=== PATIENT | female | born 1985 | race Caucasian/White ===

== ENCOUNTER 2016-08-11 19:49 | Emergency (ER) | payer OTHER ==
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
--- NOTE | 2016-08-11 23:40 | ED ORDER SUMMARY ---
..... Patient: YVON LOPEZ OrderSheet [facility] VisitID: [id number] [place] [address] 31y, F Registration Date/Time: 08/11/2016 ORDER SHEET Weight: 66.2 kg (stated) Allergies: No Known Drug Allergy GENERAL ORDERS: MEDICATION ORDERS: Ativan IM 2 mg (HIGH ALERT MEDICATION, NOW) (23:04 08/11/2016 Christina R.N. verbal order read back to HBivens A.R.N.P.) (23:04 HOShaughalessia R.N.) IV FLUIDS: Ativan IV 2 mg (HIGH ALERT MEDICATION, NOW) (22:55 08/11/2016 HBivens A.R.N.P.) (Cancelled: Physician Order23:04 HOSmakayla R.N.) ORDER SHEET NOTES: [Electronically signed by Namrata Arredondo A.R.N.P. (00:17 08/12/2016)] [Electronically signed by Anatoly Mcintyre R.N. (14:30 08/13/2016)] [Electronically locked/signed by Anatoly Mcintyre R.N. (14:30 08/13/2016)]
--- NOTE | 2016-08-11 23:40 | ED ORDER SUMMARY ---
..... Patient: YVON LOPEZ OrderSheet [facility] VisitID: [id number] [place] [address] 31y, F Registration Date/Time: 08/11/2016 ORDER SHEET Weight: 66.2 kg (stated) Allergies: No Known Drug Allergy GENERAL ORDERS: MEDICATION ORDERS: Ativan IM 2 mg (HIGH ALERT MEDICATION, NOW) (23:04 08/11/2016 Christina R.N. verbal order read back to HBivens A.R.N.P.) (23:04 HOShaughalessia R.N.) IV FLUIDS: Ativan IV 2 mg (HIGH ALERT MEDICATION, NOW) (22:55 08/11/2016 HBivens A.R.N.P.) (Cancelled: Physician Order23:04 HOSmakayla R.N.) ORDER SHEET NOTES: [Electronically signed by Namrata Arredondo A.R.N.P. (00:17 08/12/2016)] [Electronically signed by Anatoly Mcintyre R.N. (14:30 08/13/2016)] [Electronically locked/signed by Anatoly Mcintyre R.N. (14:30 08/13/2016)]
--- NOTE | 2016-08-13 14:30 | ED MAR SUMMARY ---
..... Medication Administration Record [facility] [address] [place] [address] Patient: YVON LOPEZ Visit ID: [id number] 31y, F Weight: 66.2 kg Height/Length: 65 in BMI: 24.3 ALLERGIES: No Known Drug Allergy Given 23:04 08/11/2016 Anatoly Mcintyre RRosanneNRosanne Medication Administered: ATIVAN [IM] (LORAZEPAM), Dose: 2 mg IM. Medication Ordered: Ativan IM 2 mg (HIGH ALERT MEDICATION, NOW).
--- NOTE | 2016-08-13 14:30 | ED MAR SUMMARY ---
..... Medication Administration Record [facility] [address] [place] [address] Patient: YVON LOPEZ Visit ID: [id number] 31y, F Weight: 66.2 kg Height/Length: 65 in BMI: 24.3 ALLERGIES: No Known Drug Allergy Given 23:04 08/11/2016 Anatoly Mcintyre RRosanneNRosanne Medication Administered: ATIVAN [IM] (LORAZEPAM), Dose: 2 mg IM. Medication Ordered: Ativan IM 2 mg (HIGH ALERT MEDICATION, NOW).
--- NOTE | 2016-08-13 14:30 | ED DISCHARGE INSTRUCTIONS ---
Patient: YVON LOPEZ General Instructions [facility] VisitID: [id number] [place] [address] 31y, F Registration Date/Time: 08/11/2016 Anxiety reaction. Intermittent explosive disorder. INSTRUCTIONS Warnings: GENERAL WARNINGS: Return or contact your physician immediately if your condition worsens or changes unexpectedly, if not improving as expected, or if other problems arise. Specifically return if problem worsens. Prescription Medications: Xanax 0.25 mg: Take 1 orally every 8 hours as needed for anxiety. Dispense fifteen (15). No refills. Substitution is permissible. Follow-up: Follow up with your doctor in about one week even if well. Call for an appointment. Summary of care provided to patient. Understanding of the discharge instructions verbalized by patient. ADDITIONAL INFORMATION Stress Reaction Anxiety is the feeling we all get when we think something bad might happen. It is a normal response to stress and usually causes only a mild reaction. When anxiety becomes more severe, emotions may interfere with daily life. In some cases, you may not even be aware of what it is youre anxious about! During an anxiety reaction, you may feel like you are helpless, nervous, depressed or irritable. Your body may show signs of anxiety in many ways. You may experience dry mouth, shakiness, dizziness, weakness, trouble breathing, chest pressure, headache, nausea, diarrhea, tiredness, inability to sleep or sexual problems. Home Care: 1) Try to locate the sources of stress in your life. They may not be obvious! These may include: -- Daily hassles of life which pile up (traffic jams, missed appointments, car troubles, etc.) -- Major life changes, both good (new baby, job promotion) and bad (loss of job, loss of loved one) -- Overload: feeling that you have too many responsibilities and can't take care of all of them at once -- Feeling helpless, feeling that your problems are beyond what youre able to solve 2) Notice how your body reacts to stress. Learn to listen to your body signals. This will help you take action before the stress becomes severe. 3) When you can, do something about the source of your stress. (Avoid hassles, limit the amount of change that happens in your life at one time and take a break when you feel overloaded). 4) Unfortunately, many stressful situations cannot be avoided. It is necessary to learn HOW TO MANAGE STRESS better. There are many proven methods that will reduce your anxiety. These include simple things like exercise, good nutrition and adequate rest. Also, there are certain techniques that are helpful: relaxation and breathing exercises, visualization, biofeedback and meditation. For more information about this, consult your doctor or go to a local bookstore and review the many books and tapes available on this subject. Follow Up If you feel that your anxiety is not responding to self-help measures, contact your doctor or make an appointment with a counselor. Get Prompt Medical Attention if any of the following occur: -- Your symptoms get worse -- Chest pain or trouble breathing -- Severe headache not relieved by rest and mild pain reliever -- Rapid or irregular heartbeat, fainting Alprazolam Oral tablet What is this medicine? ALPRAZOLAM (al PRAY anthony dowling) is a benzodiazepine. It is used to treat anxiety and panic attacks. How should I use this medicine? Take this medicine by mouth with a glass of water. Follow the directions on the prescription label. Take your medicine at regular intervals. Do not take it more often than directed. If you have been taking this medicine regularly for some time, do not suddenly stop taking it. You must gradually reduce the dose or you may get severe side effects. Ask your doctor or health home care chaplain for advice. Even after you stop taking this medicine it can still affect your body for several days. Talk to your harnessmaker regarding the use of this medicine in children. Special care may be needed. What side effects may I notice from receiving this medicine? Side effects that you should report to your doctor or health home care chaplain as soon as possible: allergic reactions like skin rash, itching or hives, swelling of the face, lips, or tongue confusion, forgetfulness depression difficulty sleeping difficulty speaking feeling faint or lightheaded, falls mood changes, excitability or aggressive behavior muscle cramps trouble passing urine or change in the amount of urine unusually weak or tired Side effects that usually do not require medical attention (report to your doctor or health home care chaplain if they continue or are bothersome): change in sex drive or performance changes in appetite What may interact with this medicine? Do not take this medicine with any of the following medications: certain medicines for HIV infection or AIDS ketoconazole itraconazole This medicine may also interact with the following medications: control pills certain macrolide antibiotics like clarithromycin, erythromycin, troleandomycin cimetidine cyclosporine ergotamine grapefruit juice herbal or dietary supplements like kava kava, melatonin, dehydroepiandrosterone, DHEA, Hiram's Wort or valerian imatinib, [id number] isoniazid levodopa medicines for depression, anxiety, or psychotic disturbances prescription pain medicines rifampin, rifapentine, or rifabutin some medicines for blood pressure or heart problems some medicines for seizures like carbamazepine, oxcarbazepine, phenobarbital, phenytoin, primidone What if I miss a dose? If you miss a dose, take it as soon as you can. If it is almost time for your next dose, take only that dose. Do not take double or extra doses. Where should I keep my medicine? Keep out of the reach of children. This medicine can be abused. Keep your medicine in a safe place to protect it from theft. Do not share this medicine with anyone. Selling or giving away this medicine is dangerous and against the law. Store at room temperature between 20 and 25 degrees C (68 and 77 degrees F). Throw away any unused medicine after the expiration date. What should I tell my health care provider before I take this medicine? They need to know if you have any of these conditions: an alcohol or drug abuse problem bipolar disorder, depression, psychosis or other mental health conditions glaucoma kidney or liver disease lung or breathing disease myasthenia gravis Parkinson's disease porphyria seizures or a history of seizures suicidal thoughts an unusual or allergic reaction to alprazolam, other benzodiazepines, foods, dyes, or preservatives or trying to get breast-feeding What should I watch for while using this medicine? Visit your doctor or health home care chaplain for regular checks on your progress. Your body can become dependent on this medicine. Ask your doctor or health home care chaplain if you still need to take it. You may get drowsy or dizzy. Do not drive, use machinery, or do anything that needs mental alertness until you know how this medicine affects you. To reduce the risk of dizzy and fainting spells, do not stand or sit up quickly, especially if you are an older patient. Alcohol may increase dizziness and drowsiness. Avoid alcoholic drinks. Do not treat yourself for coughs, colds or allergies without asking your doctor or health home care chaplain for advice. Some ingredients can increase possible side effects. You have been given the following additional information: Anxiety Reaction Alprazolam Oral tablet (Electronically signed by Namrata Arredondo A.R.N.P. 08/12/2016 0:17)
--- NOTE | 2016-08-13 14:30 | ED MED RECONCILIATION SUMMARY ---
Patient: YVON LOPEZ Medication Reconciliation Report [facility] VisitID: [id number] [address] [place] [address] 31y, F Registration Date/Time: 08/11/2016 Weight: 66.2 kg Height/Length: 65 in. BMI: 24.3 ALLERGIES: No Known Drug Allergy The patient's Home Medications are listed below: THE FOLLOWING MEDICATIONS NEED TO BE RECONCILED: SEROquel Oral Valtrex Oral The source(s) of the original Home Medication information: Not obtained. The following Medications were given to the patient in the Emergency Department: Ativan [IM] IM 2 mg, administered: 08/11/2016 11:04:00 PM The following Medications were prescribed to the patient: Xanax 0.25 mg: Take 1 orally every 8 hours as needed for anxiety. Dispense fifteen (15). No refills. Substitution is permissible. -- Namrata Arredondo A.R.N.P.
--- NOTE | 2016-08-13 14:30 | ED MED RECONCILIATION SUMMARY ---
Patient: YVON LOPEZ Medication Reconciliation Report [facility] VisitID: [id number] [address] [place] [address] 31y, F Registration Date/Time: 08/11/2016 Weight: 66.2 kg Height/Length: 65 in. BMI: 24.3 ALLERGIES: No Known Drug Allergy The patient's Home Medications are listed below: THE FOLLOWING MEDICATIONS NEED TO BE RECONCILED: SEROquel Oral Valtrex Oral The source(s) of the original Home Medication information: Not obtained. The following Medications were given to the patient in the Emergency Department: Ativan [IM] IM 2 mg, administered: 08/11/2016 11:04:00 PM The following Medications were prescribed to the patient: Xanax 0.25 mg: Take 1 orally every 8 hours as needed for anxiety. Dispense fifteen (15). No refills. Substitution is permissible. -- Namrata Arredondo A.R.N.P.
--- NOTE | 2016-08-13 14:30 | ED DISCHARGE INSTRUCTIONS ---
Patient: YVON LOPEZ General Instructions [facility] VisitID: [id number] [place] [address] 31y, F Registration Date/Time: 08/11/2016 Anxiety reaction. Intermittent explosive disorder. INSTRUCTIONS Warnings: GENERAL WARNINGS: Return or contact your physician immediately if your condition worsens or changes unexpectedly, if not improving as expected, or if other problems arise. Specifically return if problem worsens. Prescription Medications: Xanax 0.25 mg: Take 1 orally every 8 hours as needed for anxiety. Dispense fifteen (15). No refills. Substitution is permissible. Follow-up: Follow up with your doctor in about one week even if well. Call for an appointment. Summary of care provided to patient. Understanding of the discharge instructions verbalized by patient. ADDITIONAL INFORMATION Stress Reaction Anxiety is the feeling we all get when we think something bad might happen. It is a normal response to stress and usually causes only a mild reaction. When anxiety becomes more severe, emotions may interfere with daily life. In some cases, you may not even be aware of what it is youre anxious about! During an anxiety reaction, you may feel like you are helpless, nervous, depressed or irritable. Your body may show signs of anxiety in many ways. You may experience dry mouth, shakiness, dizziness, weakness, trouble breathing, chest pressure, headache, nausea, diarrhea, tiredness, inability to sleep or sexual problems. Home Care: 1) Try to locate the sources of stress in your life. They may not be obvious! These may include: -- Daily hassles of life which pile up (traffic jams, missed appointments, car troubles, etc.) -- Major life changes, both good (new baby, job promotion) and bad (loss of job, loss of loved one) -- Overload: feeling that you have too many responsibilities and can't take care of all of them at once -- Feeling helpless, feeling that your problems are beyond what youre able to solve 2) Notice how your body reacts to stress. Learn to listen to your body signals. This will help you take action before the stress becomes severe. 3) When you can, do something about the source of your stress. (Avoid hassles, limit the amount of change that happens in your life at one time and take a break when you feel overloaded). 4) Unfortunately, many stressful situations cannot be avoided. It is necessary to learn HOW TO MANAGE STRESS better. There are many proven methods that will reduce your anxiety. These include simple things like exercise, good nutrition and adequate rest. Also, there are certain techniques that are helpful: relaxation and breathing exercises, visualization, biofeedback and meditation. For more information about this, consult your doctor or go to a local bookstore and review the many books and tapes available on this subject. Follow Up If you feel that your anxiety is not responding to self-help measures, contact your doctor or make an appointment with a counselor. Get Prompt Medical Attention if any of the following occur: -- Your symptoms get worse -- Chest pain or trouble breathing -- Severe headache not relieved by rest and mild pain reliever -- Rapid or irregular heartbeat, fainting Alprazolam Oral tablet What is this medicine? ALPRAZOLAM (al PRAY anthony dowling) is a benzodiazepine. It is used to treat anxiety and panic attacks. How should I use this medicine? Take this medicine by mouth with a glass of water. Follow the directions on the prescription label. Take your medicine at regular intervals. Do not take it more often than directed. If you have been taking this medicine regularly for some time, do not suddenly stop taking it. You must gradually reduce the dose or you may get severe side effects. Ask your doctor or health neurocritical care physician for advice. Even after you stop taking this medicine it can still affect your body for several days. Talk to your refractory worker regarding the use of this medicine in children. Special care may be needed. What side effects may I notice from receiving this medicine? Side effects that you should report to your doctor or health neurocritical care physician as soon as possible: allergic reactions like skin rash, itching or hives, swelling of the face, lips, or tongue confusion, forgetfulness depression difficulty sleeping difficulty speaking feeling faint or lightheaded, falls mood changes, excitability or aggressive behavior muscle cramps trouble passing urine or change in the amount of urine unusually weak or tired Side effects that usually do not require medical attention (report to your doctor or health neurocritical care physician if they continue or are bothersome): change in sex drive or performance changes in appetite What may interact with this medicine? Do not take this medicine with any of the following medications: certain medicines for HIV infection or AIDS ketoconazole itraconazole This medicine may also interact with the following medications: control pills certain macrolide antibiotics like clarithromycin, erythromycin, troleandomycin cimetidine cyclosporine ergotamine grapefruit juice herbal or dietary supplements like kava kava, melatonin, dehydroepiandrosterone, DHEA, Hiram's Wort or valerian imatinib, STI-571 isoniazid levodopa medicines for depression, anxiety, or psychotic disturbances prescription pain medicines rifampin, rifapentine, or rifabutin some medicines for blood pressure or heart problems some medicines for seizures like carbamazepine, oxcarbazepine, phenobarbital, phenytoin, primidone What if I miss a dose? If you miss a dose, take it as soon as you can. If it is almost time for your next dose, take only that dose. Do not take double or extra doses. Where should I keep my medicine? Keep out of the reach of children. This medicine can be abused. Keep your medicine in a safe place to protect it from theft. Do not share this medicine with anyone. Selling or giving away this medicine is dangerous and against the law. Store at room temperature between 20 and 25 degrees C (68 and 77 degrees F). Throw away any unused medicine after the expiration date. What should I tell my health care provider before I take this medicine? They need to know if you have any of these conditions: an alcohol or drug abuse problem bipolar disorder, depression, psychosis or other mental health conditions glaucoma kidney or liver disease lung or breathing disease myasthenia gravis Parkinson's disease porphyria seizures or a history of seizures suicidal thoughts an unusual or allergic reaction to alprazolam, other benzodiazepines, foods, dyes, or preservatives or trying to get breast-feeding What should I watch for while using this medicine? Visit your doctor or health neurocritical care physician for regular checks on your progress. Your body can become dependent on this medicine. Ask your doctor or health neurocritical care physician if you still need to take it. You may get drowsy or dizzy. Do not drive, use machinery, or do anything that needs mental alertness until you know how this medicine affects you. To reduce the risk of dizzy and fainting spells, do not stand or sit up quickly, especially if you are an older patient. Alcohol may increase dizziness and drowsiness. Avoid alcoholic drinks. Do not treat yourself for coughs, colds or allergies without asking your doctor or health neurocritical care physician for advice. Some ingredients can increase possible side effects. You have been given the following additional information: Anxiety Reaction Alprazolam Oral tablet (Electronically signed by Namrata Arredondo A.R.N.P. 08/12/2016 0:17)
== END 2016-08-12 00:06 | disposition home or self-care (01) ==
LOC: ED SRH 19:49
DX: F41.1 Generalized anxiety disorder (principal); F63.81 Intermittent explosive disorder; J45.909 Unspecified asthma, uncomplicated; F17.210 Nicotine dependence, cigarettes, uncomplicated

== ENCOUNTER 2016-08-13 15:47 | Emergency (ER) | payer OTHER ==
--- NOTE | 2016-08-13 21:02 | ED CLINICAL REPORT ---
Clinical Report - Physicians/Mid Levels [facility] [address] [place] [address] 08/13/2016 15:49 Patient: YVON LOPEZ Time Seen: 16:38 Aug 13 2016. Arrived- By private vehicle. Historian- patient. HISTORY OF PRESENT ILLNESS Chief Complaint: DEPRESSED. 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 (PATIENT REPORTS IN THE LAST 3 DAYS AND RECESSES, INCREASED STRESSORS AT HOME, HAS A HISTORY OF BIPOLAR, WAS RATHER WITH ANXIETY, ONE BLACKOUT MOMENTS THAT SHE DOES NOT RECALL, WITHOUT SYNCOPE 3 DAYS PREVIOUSLY, WAS SEEN IN THE er, HAS HAD HALLUCINATIONS, VOICES IN HER HEAD, NO si OR hi AT THIS TIME. CONCERN.). REVIEW OF SYSTEMS No chest pain, palpitations, abdominal pain, diarrhea or joint pain. All systems otherwise negative, except as recorded above. ADDITIONAL NOTES The nursing notes have been reviewed. PHYSICAL EXAM Vital Signs: 08/13/2016 16:34 BP: 123/74. HR: 67. RR: 16. O2 saturation: 100%. Temp: 98.9 F. Pain level now: 0/10. Appearance: No acute distress. CVS: Normal heart rate and rhythm. Heart sounds normal. Respiratory: Breath sounds normal. Chest nontender. Skin: Normal skin color. Psych / Neuro: Mood and affect normal. Speech normal. Cognition normal. Thought process and content normal. Insight and judgement normal. Cranial nerves normal (as tested). No cerebellar findings. LABS, X-RAYS, AND EKG Laboratory Tests: UA-Culture if indicated: (MARTINEZ: 08/13/2016 17:10) ( MsgRcvd 08/13/2016 17:25) Final results Test Result Flag Units (Reference) URINE COLOR YELLOW URINE APPEARANCE SL CLOUDY URINE GLUCOSE NEGATIVE (NEGATIVE) URINE BILIRUBIN NEGATIVE (NEGATIVE) URINE KETONE TRACE (NEGATIVE) URINE SPECIFIC GRAVITY 1.025 (1.010-1.030) URINE PH 6.0 (5.0-8.0) URINE PROTEIN NEGATIVE (NEGATIVE) URINE UROBILINOGEN 0.2 EU/dL (0.2-1.0) URINE NITRITE POSITIVE (NEGATIVE) URINE BLOOD TRACE-LYSED (NEGATIVE) URINE LEUK ESTERASE POSITIVE (NEGATIVE) URINE RBC 0-1 rbc/hpf (0-1) URINE WBC 25-50 wbc/hpf (0-1) URINE EPITHELIAL CELLS 5-10 EPI/hpf (0-5) URINE BACTERIA MANY (4+) (NONE SEEN) URINE COMMENT CULTURE INDICATED 2+ MUCUSURINE CULTURES ARE SET-UP BASED ON THE FOLLOWING CRITERIA:POSITIVE NITRITEPOSITIVE LEUKOCYTE ESTERASEGREATER THAN 10 WHITE BLOOD CELLSMODERATE (2+) OR GREATER BACTERIA Urine: (MARTINEZ: 08/13/2016 17:10) ( [facility] 08/13/2016 17:18) Final results Test Result Flag Units (Reference) URINE NEGATIVE Urine Drug Screen: (MARTINEZ: 08/13/2016 17:10) ( [facility] 08/13/2016 17:41) Final results Test Result Flag Units (Reference) AMPHETAMINE/METHAMPHETAMINE NEGATIVE (NEGATIVE) BARBITURATE NEGATIVE (NEGATIVE) BENZODIAZEPINE NEGATIVE (NEGATIVE) CANNABINOID POSITIVE H (NEGATIVE) COCAINE NEGATIVE (NEGATIVE) ECSTASY NEGATIVE (NEGATIVE) METHADONE NEGATIVE (NEGATIVE) OPIATE NEGATIVE (NEGATIVE) The urine drug screen is a qualitative screening test fordrug overdose and abuse. All screen results should beconsidered as presumptive.Drugs screened for are as follows:BenzodiazepinesCocaineAmphetamines/MetamphetaminesTHC (Tetrahydrocannabinol)OpiatesBarbituratesEcstasyMethadonePositive results are unconfirmed. For confirmation, notifythe lab for the specimen to be sent to the reference lab.All confirmations must be performed by a differentmethodology.The ingestion of natural herbal and plant productscontaining Ephedra/Ephedra metabolites can produce in urineone or more substances capable of cross reacting withamphetamine/methamphetamine immunoassays. These testsprovide a preliminary result only. A more specificalternative chemical method must be used to obtain aconfirmed analytical result. . PROGRESS AND PROCEDURES Course of Care: evaluated by PAT team Jose, treated/ assessed/ and plan for patient patient very cooperative in the ER, stable. patient to follow-up tomorrow. Denies current SI or HI Signs of cystitis on urine, pt left without her rx, given macrobid in er, have called and left VM for her rx ro be picked up or called into pharmacy. 08/13/2016 21:03 BP: 108/76. HR: 62. RR: 15. O2 saturation: 100%. Pain level now: 0/10. Patient is stable. Symptoms better. Patient/family counseled. Disposition: Discharged. CLINICAL IMPRESSION Bipolar disorder. Cystitis. INSTRUCTIONS Stay with responsible adult family member (or other responsible adult). Do not work (-08/15/16). (follow up as discussed with PAT team). Prescription Medications: Macrobid 100 mg: take 1 capsule orally every 12 hours for 7 days. No refill. Substitution is not permissible Follow-up: Follow up with your doctor tomorrow. (Electronically signed by Amy Hodges P.A.-C 08/13/2016 22:00) Addenda for YVON LOPEZ VisitID: [id number] Date: 08/13/2016 08/13/2016 21:57 2155 Called [phone] and left a message for pt to call back, to let us know where to call in a prescrition for her UTI. (Electronically signed by Luis Salmeron R.N. - 08/13/2016 21:57)
--- NOTE | 2016-08-13 21:02 | ED CLINICAL REPORT ---
Clinical Report - Physicians/Mid Levels [facility] [address] [place] [address] 08/13/2016 15:49 Patient: YVON LOPEZ Time Seen: 16:38 Aug 13 2016. Arrived- By private vehicle. Historian- patient. 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 (PATIENT REPORTS IN THE LAST 3 DAYS AND RECESSES, INCREASED STRESSORS AT HOME, HAS A HISTORY OF BIPOLAR, WAS RATHER WITH ANXIETY, ONE BLACKOUT MOMENTS THAT SHE DOES NOT RECALL, WITHOUT SYNCOPE 3 DAYS PREVIOUSLY, WAS SEEN IN THE er, HAS HAD HALLUCINATIONS, VOICES IN HER HEAD, NO si OR hi AT THIS TIME. CONCERN.). REVIEW OF SYSTEMS No chest pain, palpitations, abdominal pain, diarrhea or joint pain. All systems otherwise negative, except as recorded above. ADDITIONAL NOTES The nursing notes have been reviewed. PHYSICAL EXAM Vital Signs: 08/13/2016 16:34 BP: 123/74. HR: 67. RR: 16. O2 saturation: 100%. Temp: 98.9 F. Pain level now: 0/10. Appearance: No acute distress. CVS: Normal heart rate and rhythm. Heart sounds normal. Respiratory: Breath sounds normal. Chest nontender. Skin: Normal skin color. Psych / Neuro: Mood and affect normal. Speech normal. Cognition normal. Thought process and content normal. Insight and judgement normal. Cranial nerves normal (as tested). No cerebellar findings. LABS, X-RAYS, AND EKG Laboratory Tests: UA-Culture if indicated: (MARTINEZ: 08/13/2016 17:10) ( MsgRcvd 08/13/2016 17:25) Final results Test Result Flag Units (Reference) URINE COLOR YELLOW URINE APPEARANCE SL CLOUDY URINE GLUCOSE NEGATIVE (NEGATIVE) URINE BILIRUBIN NEGATIVE (NEGATIVE) URINE KETONE TRACE (NEGATIVE) URINE SPECIFIC GRAVITY 1.025 (1.010-1.030) URINE PH 6.0 (5.0-8.0) URINE PROTEIN NEGATIVE (NEGATIVE) URINE UROBILINOGEN 0.2 EU/dL (0.2-1.0) URINE NITRITE POSITIVE (NEGATIVE) URINE BLOOD TRACE-LYSED (NEGATIVE) URINE LEUK ESTERASE POSITIVE (NEGATIVE) URINE RBC 0-1 rbc/hpf (0-1) URINE WBC 25-50 wbc/hpf (0-1) URINE EPITHELIAL CELLS 5-10 EPI/hpf (0-5) URINE BACTERIA MANY (4+) (NONE SEEN) URINE COMMENT CULTURE INDICATED 2+ MUCUSURINE CULTURES ARE SET-UP BASED ON THE FOLLOWING CRITERIA:POSITIVE NITRITEPOSITIVE LEUKOCYTE ESTERASEGREATER THAN 10 WHITE BLOOD CELLSMODERATE (2+) OR GREATER BACTERIA Urine: (MARTINEZ: 08/13/2016 17:10) ( [facility]) Final results Test Result Flag Units (Reference) URINE NEGATIVE Urine Drug Screen: (MARTINEZ: 08/13/2016 17:10) ( [facility] 08/13/2016 17:41) Final results Test Result Flag Units (Reference) AMPHETAMINE/METHAMPHETAMINE NEGATIVE (NEGATIVE) BARBITURATE NEGATIVE (NEGATIVE) BENZODIAZEPINE NEGATIVE (NEGATIVE) CANNABINOID POSITIVE H (NEGATIVE) COCAINE NEGATIVE (NEGATIVE) ECSTASY NEGATIVE (NEGATIVE) METHADONE NEGATIVE (NEGATIVE) OPIATE NEGATIVE (NEGATIVE) The urine drug screen is a qualitative screening test fordrug overdose and abuse. All screen results should beconsidered as presumptive.Drugs screened for are as follows:BenzodiazepinesCocaineAmphetamines/MetamphetaminesTHC (Tetrahydrocannabinol)OpiatesBarbituratesEcstasyMethadonePositive results are unconfirmed. For confirmation, notifythe lab for the specimen to be sent to the reference lab.All confirmations must be performed by a differentmethodology.The ingestion of natural herbal and plant productscontaining Ephedra/Ephedra metabolites can produce in urineone or more substances capable of cross reacting withamphetamine/methamphetamine immunoassays. These testsprovide a preliminary result only. A more specificalternative chemical method must be used to obtain aconfirmed analytical result. . PROGRESS AND PROCEDURES Course of Care: evaluated by PAT team Jose, treated/ assessed/ and plan for patient patient very cooperative in the ER, stable. patient to follow-up tomorrow. Denies current SI or HI Signs of cystitis on urine, pt left without her rx, given macrobid in er, have called and left VM for her rx ro be picked up or called into pharmacy. 08/13/2016 21:03 BP: 108/76. HR: 62. RR: 15. O2 saturation: 100%. Pain level now: 0/10. Patient is stable. Symptoms better. Patient/family counseled. Disposition: Discharged. CLINICAL IMPRESSION Bipolar disorder. Cystitis. INSTRUCTIONS Stay with responsible adult family member (or other responsible adult). Do not work (-08/15/16). (follow up as discussed with PAT team). Prescription Medications: Macrobid 100 mg: take 1 capsule orally every 12 hours for 7 days. No refill. Substitution is not permissible Follow-up: Follow up with your doctor tomorrow. (Electronically signed by Amy Hodges P.A.-C 08/13/2016 22:00) Addenda for YVON LOPEZ VisitID: [id number] Date: 08/13/2016 08/13/2016 21:57 2155 Called [phone] and left a message for pt to call back, to let us know where to call in a prescrition for her UTI. (Electronically signed by Luis Salmeron R.N. - 08/13/2016 21:57)
--- NOTE | 2016-08-13 21:03 | ED ORDER SUMMARY ---
..... Patient: YVON LOPEZ OrderSheet [facility] VisitID: [id number] [place] [address] 31y, F Registration Date/Time: 08/13/2016 ORDER SHEET Weight: 66.2 kg (stated) Allergies: No Known Drug Allergy GENERAL ORDERS: UA-Culture if indicated Urgent (16:47 08/13/2016 EKoroleva P.A.-C) (Ack 17:04 NHouse ER Tech1) (17:10 LNations ER Tech1) Urine Urgent (16:47 08/13/2016 EKoroleva P.A.-C) (Ack 17:04 NHouse ER Tech1) (17:10 LNations ER Tech1) Urine Drug Screen Urgent (16:47 08/13/2016 EKoroleva P.A.-C) (Ack 17:04 NHouse ER Tech1) (17:10 LNations ER Tech1) - (call [place]/ pat team) (18:05 08/13/2016 EKoroleva P.A.-C) (18:11 Christina R.N.) MEDICATION ORDERS: Macrobid PO 100 mg (NOW) (18:05 08/13/2016 EKoroleva P.A.-C) (18:17 HOShaughjimmyy R.N.) Tylenol PO 650 mg (NOW) (19:19 08/13/2016 EKoroleva P.A.-C) (19:21 Rodrigo R.N.) IV FLUIDS: ORDER SHEET NOTES: [Electronically signed by Aym Hodges P.A.-C (22:00 08/13/2016)] [Electronically signed by Luis Salmeron R.N. (02:08/14/2016)] [Electronically locked/signed by Luis Salmeron R.N. (:08/14/2016)]
--- NOTE | 2016-08-13 21:03 | ED NURSING NOTES ---
Clinical Report - Nurses [facility] [address] [place] [address] 08/13/2016 15:49 Patient: YVON LOPEZ TRIAGE Triage time 1634 PM. Chief Complaint: DEPRESSION. --16:37 Anatoly Mcintyre R.N. 16:34 08/13/16. BP: 123/74. HR: 67. RR: 16. O2 saturation: 100%. Temp: 98.9 F (oral). Pain level now: 0/10. --16:37 Anatoly Mcintyre R.N. Alert. No acute distress. MARIA COMA SCORE: Maria Coma Scale: 15- eyes open spontaneously (4); best verbal response- oriented x 4 (5); best motor response- obeys commands (6). --16:37 Anatoly Mcintyre R.N. Weight: 66.2 kg stated. Height/Length: 65 inches Per Patient. BMI: 24.3. --16:36 Anatoly Mcintyre R.N. Medications SEROquel Oral. Valtrex Oral. --16:35 Anatoly Mcintyre R.N. Allergies No Known Drug Allergy. --16:35 Anatoly Mcintyre R.N. History Arrived by private vehicle. Historian: patient. Unaccompanied. Onset. (since saturday). She has had anxiety and sleeping difficulties. PAST MEDICAL HX: Anxiety. Psychiatric illness. SOCIAL HX: Smoker- current status unknown (October 03 2014). Never smoker. Occasional alcohol use. History of drug use: marijuana. FALL RISK ASSESSMENT: Fall risk assessment completed. No fall risk identified. NUTRITIONAL RISK ASSESSMENT: The nutritional risk assessment revealed no deficiencies. FUNCTIONAL ASSESSMENT: Functional assessment: no impairments noted. LEARNING NEEDS ASSESSMENT: The learning needs assessment revealed no barriers. SKIN INTEGRITY ASSESSMENT: Skin integrity risk assessment completed. No skin integrity risk identified. --16:37 Anatoly Mcintyre R.N. PROBLEMS: Mental Illness. Anxiety Reaction. Previous Psychiatric Treatment. Suicide Attempt. Sprain. Bipolar Disorder. Depression. --16:36 Anatoly Mcintyre R.N. ADDITIONAL SURGERIES: no known surgeries. PHYSICAL ASSESSMENT Ambulatory to room. GENERAL / NEURO / PSYCH: Alert. Oriented X 4. Appears in no acute distress. Patient's mood/affect appears tearful. RESPIRATORY: Respirations not labored. Breath sounds within normal limits. CVS: Normal heart rate and rhythm. Capillary refill less than 2 seconds. GI / : Abdomen soft and nontender. Bowel sounds within normal limits. SKIN: Skin intact. Skin is warm and dry. Skin color is within normal limits. --16:38 Anatoly Mcintyre R.N. NURSING PROGRESS NOTES Patient ID band checked for patient name and birthdate: patient confirmed. Instructions provided to collect clean catch urine and patient verbalized understanding. Clean catch urine collected with return of yellow-colored urine; sample sent to lab for urinalysis, culture, drug screen and HCG. Specimen labeled in the presence of the patient. --17:11 Laura Torres ER Tech 18:17 08/13/2016 Macrobid PO Capsules 100 mg given. Allergies verified and confirmed 5 rights. --18:17 Anatoly Mcintyre R.N. ( Breathalyzer: 0.00). --18:17 Anatoly Mcintyre R.N. ( Patient sitting in the chair watching Chris Potter. Provided patient with a turkey sandwich and string cheese for dinner. [facility] team called.). --18:18 Anatoly Mcintyre R.N. 19:05. Care transferred and report received. --19:05 Luis Salmeron R.N. ( Report to ROMMEL Smith.). --19:10 Anatoly Mcintyre R.N. 19:21 08/13/2016 Tylenol (Acetaminophen) PO 650 mg given. Allergies verified and confirmed 5 rights. --19:21 Luis Salmeron R.N. 19:36 PAT team members with pt. --19:36 Luis Salmeron R.N. 21:03. The patient is calm and resting quietly. GENERAL / NEURO / PSYCH: Alert. Oriented X 4. Patient appears calm and cooperative. Affect appears normal. RESPIRATORY: No respiratory distress. SKIN: Skin is warm and dry. Skin color within normal limits. --02:26 Luis Salmeron R.N. DISPOSITION / DISCHARGE Departure time: 21:05. Condition at departure: stable. No learning barriers present. Discharge instructions provided and reviewed with the patient. Patient verbalized understanding. Written instructions provided in Turkish. The patient was discharged home and accompanied by rescue instructor. She left the Emergency Department ambulatory and via (Walking). FALL RISK ASSESSMENT: Fall risk assessment completed. No fall risk identified. --21:05 Luis Salmeron R.N. 21:03 08/13/16. BP: 108/76. HR: 62. RR: 15. O2 saturation: 100% on room air. Pain level now: 0/10. --21:05 Luis Salmeron R.N. Departure time: Corrected time 21:09. --21:09 Luis Salmeron R.N. Work note given. --21: Luis Salmeron R.N. Locked/Released at 08/14/2016 2:27 by Luis Salmeron R.N.
--- NOTE | 2016-08-13 21:03 | ED ORDER SUMMARY ---
..... Patient: YVON LOPEZ OrderSheet [facility] VisitID: [id number] [place] [address] 31y, F Registration Date/Time: 08/13/2016 ORDER SHEET Weight: 66.2 kg (stated) Allergies: No Known Drug Allergy GENERAL ORDERS: UA-Culture if indicated Urgent (16:47 08/13/2016 EKoroleva P.A.-C) (Ack 17:04 NHouse ER Tech1) (17:10 LNations ER Tech1) Urine Urgent (16:47 08/13/2016 EKoroleva P.A.-C) (Ack 17:04 NHouse ER Tech1) (17:10 LNations ER Tech1) Urine Drug Screen Urgent (16:47 08/13/2016 EKoroleva P.A.-C) (Ack 17:04 NHouse ER Tech1) (17:10 LNations ER Tech1) - (call [place]/ pat team) (18:05 08/13/2016 EKoroleva P.A.-C) (18:11 Christina R.N.) MEDICATION ORDERS: Macrobid PO 100 mg (NOW) (18:05 08/13/2016 EKoroleva P.A.-C) (18:17 HOShaughjimmyy R.N.) Tylenol PO 650 mg (NOW) (19:19 08/13/2016 EKoroleva P.A.-C) (19:21 Rodrigo R.N.) IV FLUIDS: ORDER SHEET NOTES: [Electronically signed by Amy Hodges P.A.-C (22:00 08/13/2016)] [Electronically signed by Luis Salmeron R.N. (02:08/14/2016)] [Electronically locked/signed by Luis Salmeron R.N. (:08/14/2016)]
--- NOTE | 2016-08-13 21:03 | ED NURSING NOTES ---
Clinical Report - Nurses [facility] [address] [place] [address] 08/13/2016 15:49 Patient: YVON LOPEZ TRIAGE Triage time 1634 PM. Chief Complaint: DEPRESSION. --16:37 Anatoly Mcintyre R.N. 16:34 08/13/16. BP: 123/74. HR: 67. RR: 16. O2 saturation: 100%. Temp: 98.9 F (oral). Pain level now: 0/10. --16:37 Anatoly Mcintyre R.N. Alert. No acute distress. MARIA COMA SCORE: Maria Coma Scale: 15- eyes open spontaneously (4); best verbal response- oriented x 4 (5); best motor response- obeys commands (6). --16:37 Anatoly Mcintyre R.N. Weight: 66.2 kg stated. Height/Length: 65 inches Per Patient. BMI: 24.3. --16:36 Anatoly Mcintyre R.N. Medications SEROquel Oral. Valtrex Oral. --16:35 Anatoly Mcintyre R.N. Allergies No Known Drug Allergy. --16:35 Anatoly Mcintyre R.N. History Arrived by private vehicle. Historian: patient. Unaccompanied. Onset. (since saturday). She has had anxiety and sleeping difficulties. PAST MEDICAL HX: Anxiety. Psychiatric illness. SOCIAL HX: Smoker- current status unknown (October 03 2014). Never smoker. Occasional alcohol use. History of drug use: marijuana. FALL RISK ASSESSMENT: Fall risk assessment completed. No fall risk identified. NUTRITIONAL RISK ASSESSMENT: The nutritional risk assessment revealed no deficiencies. FUNCTIONAL ASSESSMENT: Functional assessment: no impairments noted. LEARNING NEEDS ASSESSMENT: The learning needs assessment revealed no barriers. SKIN INTEGRITY ASSESSMENT: Skin integrity risk assessment completed. No skin integrity risk identified. --16:37 Anatoly Mcintyre R.N. PROBLEMS: Mental Illness. Anxiety Reaction. Previous Psychiatric Treatment. Suicide Attempt. Sprain. Bipolar Disorder. Depression. --16:36 Anatoly Mcintyre R.N. ADDITIONAL SURGERIES: no known surgeries. PHYSICAL ASSESSMENT Ambulatory to room. GENERAL / NEURO / PSYCH: Alert. Oriented X 4. Appears in no acute distress. Patient's mood/affect appears tearful. RESPIRATORY: Respirations not labored. Breath sounds within normal limits. CVS: Normal heart rate and rhythm. Capillary refill less than 2 seconds. GI / : Abdomen soft and nontender. Bowel sounds within normal limits. SKIN: Skin intact. Skin is warm and dry. Skin color is within normal limits. --16:38 Anatoly Mcintyre R.N. NURSING PROGRESS NOTES Patient ID band checked for patient name and birthdate: patient confirmed. Instructions provided to collect clean catch urine and patient verbalized understanding. Clean catch urine collected with return of yellow-colored urine; sample sent to lab for urinalysis, culture, drug screen and HCG. Specimen labeled in the presence of the patient. --17:11 Laura Torres ER Tech 18:17 08/13/2016 Macrobid PO Capsules 100 mg given. Allergies verified and confirmed 5 rights. --18:17 Anatoly Mcintyre R.N. ( Breathalyzer: 0.00). --18:17 Anatoly Mcintyre R.N. ( Patient sitting in the chair watching Chris Potter. Provided patient with a turkey sandwich and string cheese for dinner. [facility] team called.). --18:18 Anatoly Mcintyre R.N. 19:05. Care transferred and report received. --19:05 Luis Salmeron R.N. ( Report to ROMMEL Smith.). --19:10 Anatoly Mcintyre R.N. 19:21 08/13/2016 Tylenol (Acetaminophen) PO 650 mg given. Allergies verified and confirmed 5 rights. --19:21 Luis Salmeron R.N. 19:36 PAT team members with pt. --19:36 Luis Salmeron R.N. 21:03. The patient is calm and resting quietly. GENERAL / NEURO / PSYCH: Alert. Oriented X 4. Patient appears calm and cooperative. Affect appears normal. RESPIRATORY: No respiratory distress. SKIN: Skin is warm and dry. Skin color within normal limits. --02:26 Luis Salmeron R.N. DISPOSITION / DISCHARGE Departure time: 21:05. Condition at departure: stable. No learning barriers present. Discharge instructions provided and reviewed with the patient. Patient verbalized understanding. Written instructions provided in Kyrgyz. The patient was discharged home and accompanied by fence maker. She left the Emergency Department ambulatory and via (Walking). FALL RISK ASSESSMENT: Fall risk assessment completed. No fall risk identified. --21:05 Luis Salmeron R.N. 21:03 08/13/16. BP: 108/76. HR: 62. RR: 15. O2 saturation: 100% on room air. Pain level now: 0/10. --21:05 Luis Salmeron R.N. Departure time: Corrected time 21:09. --21:09 Luis Salmeron R.N. Work note given. --21: Luis Salmeron R.N. Locked/Released at 08/14/2016 2:27 by Luis Salmeron R.N.
--- NOTE | 2016-08-14 02:27 | ED MAR SUMMARY ---
..... Medication Administration Record [facility] [address] [place] [address] Patient: YVON LOPEZ Visit ID: [id number] 31y, F Weight: 66.2 kg Height/Length: 65 in BMI: 24.3 ALLERGIES: No Known Drug Allergy Given 18:17 08/13/2016 Anatoly Mcintyre, RRosanneNRosanne Medication Administered: MACROBID [PO], Dose: 100 mg Capsules PO. Medication Ordered: Macrobid PO 100 mg (NOW). Given 19:21 08/13/2016 Luis Salmeron, RRosanneNRosanne Medication Administered: TYLENOL [PO] (ACETAMINOPHEN), Dose: 650 mg PO. Medication Ordered: Tylenol PO 650 mg (NOW).
--- NOTE | 2016-08-14 02:27 | ED MED RECONCILIATION SUMMARY ---
Patient: YVON LOPEZ Medication Reconciliation Report [facility] VisitID: [id number] [address] [place] [address] 31y, F Registration Date/Time: 08/13/2016 Weight: 66.2 kg Height/Length: 65 in. BMI: 24.3 ALLERGIES: No Known Drug Allergy The patient's Home Medications are listed below: THE FOLLOWING MEDICATIONS NEED TO BE RECONCILED: SEROquel Oral Valtrex Oral The source(s) of the original Home Medication information: Not obtained. The following Medications were given to the patient in the Emergency Department: Macrobid [PO] PO 100 mg, administered: 08/13/2016 6:17:00 PM Tylenol [PO] PO 650 mg, administered: 08/13/2016 7:21:00 PM The following Medications were prescribed to the patient: Macrobid 100 mg: take 1 capsule orally every 12 hours for 7 days. No refill. Substitution is not permissible -- Amy Hodges P.AFrandyC
--- NOTE | 2016-08-14 02:27 | ED MAR SUMMARY ---
..... Medication Administration Record [facility] [address] [place] [address] Patient: YVON LOPEZ Visit ID: [id number] 31y, F Weight: 66.2 kg Height/Length: 65 in BMI: 24.3 ALLERGIES: No Known Drug Allergy Given 18:17 08/13/2016 Anatoly Mcintyre, RRosanneNRosanne Medication Administered: MACROBID [PO], Dose: 100 mg Capsules PO. Medication Ordered: Macrobid PO 100 mg (NOW). Given 19:21 08/13/2016 Luis Salmeron, RRosanneNRosanne Medication Administered: TYLENOL [PO] (ACETAMINOPHEN), Dose: 650 mg PO. Medication Ordered: Tylenol PO 650 mg (NOW).
--- NOTE | 2016-08-14 02:27 | ED DISCHARGE INSTRUCTIONS ---
Patient: YVON LOPEZ General Instructions [facility] VisitID: [id number] [place] [address] 31y, F Registration Date/Time: 08/13/2016 Bipolar disorder. Cystitis. INSTRUCTIONS Stay with responsible adult family member (or other responsible adult). Do not work (-08/15/16). (follow up as discussed with PAT team). Prescription Medications: Macrobid 100 mg: take 1 capsule orally every 12 hours for 7 days. No refill. Substitution is not permissible Follow-up: Follow up with your doctor tomorrow. Stay with responsible adult family member (or other responsible adult). Do not work (-08/15/16). (Electronically signed by Amy Hodges P.A.-C 08/13/2016 22:00)
--- NOTE | 2016-08-14 02:27 | ED MED RECONCILIATION SUMMARY ---
Patient: YVON LOPEZ Medication Reconciliation Report [facility] VisitID: [id number] [address] [place] [address] 31y, F Registration Date/Time: 08/13/2016 Weight: 66.2 kg Height/Length: 65 in. BMI: 24.3 ALLERGIES: No Known Drug Allergy The patient's Home Medications are listed below: THE FOLLOWING MEDICATIONS NEED TO BE RECONCILED: SEROquel Oral Valtrex Oral The source(s) of the original Home Medication information: Not obtained. The following Medications were given to the patient in the Emergency Department: Macrobid [PO] PO 100 mg, administered: 08/13/2016 6:17:00 PM Tylenol [PO] PO 650 mg, administered: 08/13/2016 7:21:00 PM The following Medications were prescribed to the patient: Macrobid 100 mg: take 1 capsule orally every 12 hours for 7 days. No refill. Substitution is not permissible -- Amy Hodges P.AFrandyC
--- NOTE | 2016-08-14 02:27 | ED DISCHARGE INSTRUCTIONS ---
Patient: YVON LOPEZ General Instructions [facility] VisitID: [id number] [place] [address] 31y, F Registration Date/Time: 08/13/2016 Bipolar disorder. Cystitis. INSTRUCTIONS Stay with responsible adult family member (or other responsible adult). Do not work (-08/15/16). (follow up as discussed with PAT team). Prescription Medications: Macrobid 100 mg: take 1 capsule orally every 12 hours for 7 days. No refill. Substitution is not permissible Follow-up: Follow up with your doctor tomorrow. Stay with responsible adult family member (or other responsible adult). Do not work (-08/15/16). (Electronically signed by Amy Hodges P.A.-C 08/13/2016 22:00)
== END 2016-08-13 21:05 | disposition home or self-care (01) ==
LOC: ED SRH 15:47
DX: F31.9 Bipolar disorder, unspecified (principal); N30.90 Cystitis, unspecified without hematuria
CPT/HCPCS: 90004; 90148; 90469; 92760; 92761; 92762; 92763; 92764; 92765; 92766; 92767; 93070